=== PATIENT | male | born 1935 | race Hispanic/Latino ===

== ENCOUNTER 2017-04-07 06:29 | Day surgery (SDC) | payer OTHER, MEDICARE ==
--- NOTE | 2017-04-05 09:46 | Anesthesia Consultation ---
Anesthesia Consult and Med Hx Date of service: 04/05/17 - Airway Anesthetic Teeth Evaluation: Good, Crowns ROM Head & Neck: Adequate Mental/Hyoid Distance: Adequate Mallampati Class: Class II Intubation Access Assessment: Probably Good - Pre-Operative Health Status ASA Pre-Surgery Classification: ASA3 Proposed Anesthetic Plan: Epidural, Spinal Nerve Block: Femoral - Pulmonary Hx Smoking: Yes (STOPPED X 20 YRS- 1 PPD X 40YRS) Hx Sleep Apnea: No (HARRIET PRE SCREEN HIGH RISK) - Cardiovascular System Hx Hypertension: Yes (X 5 YRS) Hx Coronary Artery Disease: No (high cholestrol) Hx Cardia Arrhythmia: Yes (h/o a-fib (2011)) Hx Heart Murmur: Yes (NO PROBLEMS) - Endocrine Hx Renal Disease: No (BPH) - Other Systems Hx Cancer: No
--- NOTE | 2017-04-06 09:45 | Admit Criteria Form ---
Admission Criteria Documentation: AMBULATORY SURGERY EXCEPTION CRITERIA Ambulatory Surgery Exception Criteria ( Place 'X' for any and all applicable criteria): Surgery or procedure performed on ambulatory basis may require inpatient stay for[A] ANY ONE of the following(1)(2)(3)(4)(5)(6)(7)(8)(9): [X] I. A preoperative situation, condition, or finding that warrants inpatient stay as indicated by ANY ONE of the following: [] a) Inpatient care needed because of severity of a disease or condition rather than the surgery (eg, severe cardiac or respiratory disease, severe infection) (15) (16 ) (17) (18) [] b) Emergent procedure (eg, angioplasty for acute ischemia)(19) [] c) Complex surgical approach or situation as indicated by ANY ONE of the following(3): [] i) Open approach needed instead of usual endoscopic, transcatheter, or other less invasive procedure [] ii) Difficult approach because of previous operation [] iii) Airway monitoring required after open neck procedures(20)(21) [] iv) Large mass requiring unusually extensive dissection [] v) Additional complicating feature requiring inpatient care (eg, drain management)(22(23): [X] d) Major surgery in a pt with high anesthetic risk as indicated by ANY ONE of the following (2)(3)(5)(7)(8): [X] i) ASA risk class III or higher (severe systemic disease impairing function) [D] [] ii) Advanced age (eg, older than 85 years)(14)(24) [] iii) Symptomatic heart failure(25) [] iv) Symptomatic asthma or COPD(8)(21) [] v) Morbid obesity with hemodynamic or respiratory problems(20)( 21)(26)(27) [] vi) Obstructive sleep apnea(20)(21) [] vii) Former premature infants who are younger than 60 weeks [] viii) High risk for severe postoperative abnormalities (eg, severe postoperative hypocalcemia after parathyroidectomy for severe hyperparathyroidism)(27)( 28) [] ix) Unstable angina(25) [] e) Drug-related risk requiring inpatient stay as indicated by ANY ONE of the following(5)(10)(14)(32)(33) [] i) Procedure requires discontinuing drugs or other therapy (eg , antiarrhythmic medication, antiseizure medication), which necessitates inpatient observation or treatment.(18)(31) [] ii) Major surgery and high risk drug use as indicated by ANY ONE of the following: [] 1) Active abuse of cocaine or similar drug [] 2) Monoamine oxidase inhibitor use [] 3) Other drug identified as posing risk [] f) Inadequate outpatient care situation as indicated by ANY ONE of the following(5)(10)(14)(32)(33) [] i) Patient lives remote from medical facility and procedure has urgent complication potential, and temporary nearby residence cannot be arranged [] ii) Patient will have postprocedure incapacitation and inadequate assistance at home, or alternative level of care cannot be arranged. [] iii) Patient will have long general anesthesia or procedure side effect resolution time, and competent person to stay with patient on first postoperative night at home or alternative level of care cannot be arranged. []iv) Other inadequate outpatient situation that cannot be handled by other means [] II. A perioperative event, condition, or finding that warrants inpatient stay as indicated by ANY ONE of the following (1)(2)(3): [] a) Inadequate physiologic recovery: cardiovascular, respiratory, or hemodynamic status not normal or near preoperative baseline(18) [] b) Hemodynamic instability [] c) Patient not alert with near normal or baseline mental status [] d) Temperature not normal or as expected and not appropriate for outpatient treatment of condition [] e) Ambulatory or appropriate activity level status not yet achieved post procedure [E](34)(35)(36) [] f) Operative site not appropriate (eg, unexpected or excessive drainage or bleeding) [] g) Postoperative effects not resolved or adequately managed (eg, significant pain or vomiting not appropriate for outpatient or next level of care)(10)(12) [] h) Complicating features requiring inpatient care as indicated by ANY ONE of the following(37): [] i) Severe complications of procedure (eg, bowel injury, airway compromise, vascular injury,severe hemorrhage) [] ii) Extensive (eg, dissection far beyond usual scope of procedure ) or prolonged (eg, 120 minutes beyond usual) surgery needed requiring inpatient postoperative care [] iii) Conversion to an open or complex procedure that requires inpatient care (eg, open vs laparoscopic cholecystectomy, abdominal vs vaginal hysterectomy)(38) [] iv) Comorbid condition or test result identified during or post procedure that requires inpatient care (7) [] v) Malignant hyperthermia(30) [] vi) Other complicating feature requiring inpatient care(22)(23) Inpatient stay may be needed until ALL of the following are present (1)(2)(3)(4) (5)(6)(10)(14)(33)(40): []a) Physiologic recovery: cardiovascular, respiratory, and hemodynamic status normal or near preoperative baseline []b) Hemodynamic stability []c) Patient alert, with near normal or baseline mental status []d) Temperature appropriate: patient afebrile or temperature appropriate for outpt treatment of condition []e) Activity level appropriate: ambulatory or appropriate activity level post procedure []f) Operative site appropriate as indicated by ALL of the following: []i) Site dry or with expected drainage []ii) Any blood noted is as expected for procedure. []g) Postoperative effects resolved or managed as indicated by ALL of the following: []i) Pain management appropriate for outpatient (or next level of) care(10) []ii) Minimal nausea and vomiting: if present, successfully treated with oral medication(12) []iii) Headache, dizziness, or drowsiness (if present) are mild. []h) Voiding status acceptable as indicated by ANY ONE of the following: []i) Voiding spontaneously []ii) No voiding but instructions given for follow-up in 6 to 8 hours []iii) Urinary catheter in place, and instructions given for follow-up []i) Complicating features requiring inpatient care manageable at a lower level of care(37) []j) Comorbid conditions manageable at a lower level of care(37) The original [employer] content created by [employer] has been revised. The portions of the content which have been revised are identified through the use of italic text or in bold, and [facility] [employer] has neither reviewed nor approved the modified material. All other unmodified content is copyright [employer] ([employer] Please see references footnoted in the original [employer] edition 2016 Admission Criteria Met: Yes
[2017-04-07] MEDS ORDERED: ANCEF/STERILE WATER 2 GM/20 ML 2 GM/20 ML SYRINGE IV NR (07:00)
[2017-04-07] MEDS ORDERED: LACTATED RINGERS 1,000 ML IV SCH (07:00)
[2017-04-07] MEDS ORDERED: NEURONTIN PO NR (07:00)
[2017-04-07] MEDS ORDERED: PEPCID IV NR (07:00)
[2017-04-07] MEDS ORDERED: VERSED IV NR (07:00)
[2017-04-07] MEDS ORDERED: NACL BACTERIOSTATIC INFILTRATI ONE (07:07)
[2017-04-07] MEDS ORDERED: NEOSPORIN GU IR ONE ×2 (07:16→10:05)
[2017-04-07] MEDS ORDERED: MARCAINE-EPI/PF 0.5%-1:200,000 INFILTRATI ONE ×4 (07:16→09:35)
[2017-04-07] MEDS ORDERED: DIPRIVAN 10 MG/ML IV ONE (07:19)
[2017-04-07] MEDS ORDERED: XYLOCAINE MPF 2% ONE (07:20)
[2017-04-07] MEDS ORDERED: NEURONTIN ONE (07:29)
[2017-04-07] MEDS ORDERED: CLONIDINE 1,000 MCG/10 ML VIAL EP ONE (07:29)
[2017-04-07] MEDS ORDERED: DECADRON ONE ×2 (07:30→11:08)
[2017-04-07] MEDS ORDERED: NACL 0.9% 200 ML ONE (08:49)
[2017-04-07] MEDS ORDERED: TRANEXAMIC ACID ONE (08:49)
[2017-04-07] MEDS ORDERED: SUBLIMAZE ONE (09:02)
[2017-04-07] MEDS ORDERED: ROBINUL ONE (09:16)
[2017-04-07] MEDS ORDERED: ePHEDrine SULFATE ONE (09:21)
[2017-04-07] MEDS ORDERED: LACTATED RINGERS 1,000 ML ONE (10:00)
[2017-04-07] MEDS ORDERED: ZOFRAN ONE (11:08)
--- NOTE | 2017-04-07 11:53 | Operative Report ---
Operative Report Operative Report: Preoperative diagnosis right knee DJD Postoperative: Same Procedure: Right knee unicompartmental arthroplasty using [employer] [place] knee with size large cemented femur, size D cemented tibia, 4 mm polyethylene insert Surgeon Marc Sahu Anesthesia without after block Estimated blood loss minimal Complications none Operative procedure: Patient underwent successful induction of anesthesia. The lower extremity was meticulously prepped and draped. Antibiotics and trans-E Mc acid were pre-administered. A standard median parapatellar incision was utilized with an arthrotomy extending from the superior pole of the patella to the tibial tubercle. Standard exposure was carried out. The lateral compartment was pristine and the anterior cruciate ligament was intact. The medial compartment demonstrated advanced degenerative changes. He was felt to be an excellent candidate for unicompartmental arthroplasty. Standard technique was utilized initially with meniscal resection and triplanar adjustment of the cuts. Utilizing an extra medullary guide the proximal tibia was resected with excellent sizing noted for the 3 or 4 mm implant. An intramedullary samantha was introduced into the femur. This was coupled with the tibial jig and posterior cut made on the femur. The gaps were then balanced utilizing circular reamers. The remainder of the posterior meniscus was resected. All osteophytes removed. Anterior reaming was performed. He had full range of motion and excellent stability with 4 mm implant. The wounds once again irrigated and the keel prepared and the tibia. Appropriate drill holes are made in the femur. The prostheses was cemented into place and the M and the polyethylene implant placed. As noted full range of motion with excellent stability. Wounds were thoroughly irrigated the arthrotomy closed with Ethibond and Vicryl suture followed by Vicryl and Monocryl for the skin. I wouldn't dressing is applied. His ectropion satisfactory condition having tolerated the procedure well.
[2017-04-07 14:45] VITALS: BP 134/76
== END 2017-04-07 14:55 | disposition home or self-care (01) ==
LOC: OR 06:29
PROVIDERS: ATTEND Orthopaedic Surgery
DX: M17.11 Unilateral primary osteoarthritis, right knee (principal); I48.91 Unspecified atrial fibrillation; I10 Essential (primary) hypertension; Z87.891 Personal history of nicotine dependence
CPT/HCPCS: 27446; 64450; 88304; 88311; 97161; C1776; G8978; G8979; G8980; J0690; J0735; J1100; J2250; J2405; J2704; J3010; J7120; 62324; 88305